=== PATIENT | male | born 1945 | race Caucasian/White ===

== ENCOUNTER → 2017-04-05 | Emergency (ER) | payer MEDICARE, BC ==
[~2017-04-05] VITALS: Ht 182.9 cm; Wt 80.3 kg
[~2017-04-05] MED LIST: DIAZEPAM INJ 5 MG/ML 2 ML IV ONE; LORAZEPAM INJ 2 MG/ML VIAL INJ ONE; ONDANSETRON HCL INJ 2 MG/ML VIAL IV ONE; SODIUM CHLORIDE 0.9% 1000ML 1,000 ML ONE; TYLENOL # 31 EA PO; ZOFRAN ODT4 MG SL; areds
== END | disposition home or self-care (01) ==
LOC: FSED 19:31
DX: R10.84 Generalized abdominal pain (principal); R11.0 Nausea; K59.00 Constipation, unspecified; N20.1 Calculus of ureter; C91.10 Chronic lymphocytic leukemia of B-cell type not having achieved remission; H35.30 Unspecified macular degeneration
CPT/HCPCS: 99283; J2060; J2405; J3360; J7030

== ENCOUNTER 2020-11-19 10:08 | Inpatient (IN) | payer MEDICARE ==
[~2020-11-19] VITALS: Ht 182.9 cm; Wt 85.3 kg
[~2020-11-19 10:08] MED LIST changes: -DIAZEPAM INJ 5 MG/ML 2 ML IV ONE; -LORAZEPAM INJ 2 MG/ML VIAL INJ ONE; -ONDANSETRON HCL INJ 2 MG/ML VIAL IV ONE; -SODIUM CHLORIDE 0.9% 1000ML 1,000 ML ONE
[2020-11-19] MEDS ORDERED: SODIUM CHLORIDE 0.9% 1000ML 1,000 ML IV STA (10:34)
[2020-11-19] MEDS ORDERED: ONDANSETRON HCL INJ 2MG/ML 2ML 2 MG/ML VIAL IV ONE (10:45)
[2020-11-19] MEDS ORDERED: KETOROLAC TROMETHAMINE 30 MG/ML VIAL IV ONE (10:45)
[2020-11-19] MEDS ORDERED: PIPERACILLIN/TAZOBACTAM 4.5 GM in SODIUM CHLORIDE 0.9% 100 ML IV ONE (10:45)
[2020-11-19] MEDS ORDERED: BENADRYL25 M1 PO (10:57)
[2020-11-19] MEDS ORDERED: VITAMIN D3250 MC1 PO (10:57)
[2020-11-19] MEDS ORDERED: MELATONIN1 M1 (10:57)
[2020-11-19] MEDS ORDERED: FLONASE ALLERG9.9 ML INH (10:57)
[2020-11-19] MEDS ORDERED: BACLOFEN10 MG PO (10:57)
[2020-11-19] MEDS ORDERED: MULTIVITAMINS1 EAC6 PO (10:57)
[2020-11-19] MEDS ORDERED: OMEPRAZOLE40 MG PO (10:57)
[2020-11-19] MEDS ORDERED: KETOROLAC TROMETHAMINE 30 MG/ML VIAL ONE (11:13)
[2020-11-19] MEDS ORDERED: SODIUM CHLORIDE 0.9% 50ML 50 ML ONE (11:13)
[2020-11-19] MEDS ORDERED: ONDANSETRON HCL INJ 2MG/ML 2ML 2 MG/ML VIAL ONE (11:13)
[2020-11-19] MEDS ORDERED: SODIUM CHLORIDE 0.9% 1000ML 1,000 ML ONE (11:13)
[2020-11-19] MEDS ORDERED: CEFTRIAXONE 1 GM VIAL ONE (11:13)
[2020-11-19] MEDS ORDERED: CEFTRIAXONE 1 GM in SODIUM CHLORIDE 0.9% 50ML 50 ML IV SCH (11:30)
[2020-11-19] MEDS ORDERED: ACETAMINOPHEN 325 MG TAB PO PRN (14:15)
[2020-11-19] MEDS ORDERED: HYDROCODONE/APAP 7.5MG-325MG 1 EA TAB PO PRN (14:15)
[2020-11-19] MEDS ORDERED: ONDANSETRON HCL INJ 2MG/ML 2ML 2 MG/ML VIAL IV PRN (14:15)
[2020-11-19] MEDS ORDERED: DIPHENHYDRAMINE HCL INJ 50 MG/ML VIAL IV PRN (14:15)
[2020-11-19] MEDS ORDERED: MORPHINE SULFATE INJ 4 MG/ML INJ 1ML IV PRN (14:15)
[2020-11-19] MEDS ORDERED: Vancomycin IV 1 GM in SODIUM CHLORIDE 0.9% 250ML 250 ML IV SCH (15:00)
[2020-11-19 16:25] VITALS: BP 136/69
[2020-11-19] MEDS: FAMOTIDINE 20 MG TAB PO SCH (17:59)
[2020-11-19] MEDS: SODIUM CHLORIDE 0.9% 1000ML 1,000 ML IV SCH ×2 (17:59→22:14)
[2020-11-19] MEDS: Vancomycin IV 1 GM in SODIUM CHLORIDE 0.9% 250ML 250 ML IV SCH (18:15)
[2020-11-19 20:00] VITALS: BP 142/71
[2020-11-19] MEDS ORDERED: CEFTRIAXONE 1 GM VIAL IV SCH (21:00)
[2020-11-19] MEDS ORDERED: ZOLPIDEM TARTRATE 5 MG TAB PO PRN (21:00)
[2020-11-19] MEDS: TAMSULOSIN HCL 0.4 MG CAP PO SCH (22:14)
[2020-11-19] MEDS: MEROPENEM 1 GM in SODIUM CHLORIDE 0.9% 100 ML IV SCH (22:14)
[2020-11-20] VITALS (9 sets, daily range): BP systolic 108–143; BP diastolic 71–85
[2020-11-20] MEDS: MEROPENEM 1 GM in SODIUM CHLORIDE 0.9% 100 ML IV SCH ×3 (05:48→22:17)
[2020-11-20] MEDS: SODIUM CHLORIDE 0.9% 1000ML 1,000 ML IV SCH ×2 (06:48→17:00)
[2020-11-20] MEDS: Vancomycin IV 1 GM in SODIUM CHLORIDE 0.9% 250ML 250 ML IV SCH ×2 (06:48→18:59)
[2020-11-20 07:07] LABS: BASOPHILS # (AUTO) 0.1 (0.0-0.1); BASOPHILS % 0.2 % (0.0-1.0); EOSINOPHILS # (AUTO) 0.1 (0.0-0.4); EOSINOPHILS % 0.3 % (0.0-6.0); HEMATOCRIT 39.6 % (38.2-49.6); HEMOGLOBIN 12.4 g/dL (14.0-18.0); LYMPHOCYTES % 70.8 % (18.0-39.1); MEAN CORPUSCULAR HEMOGLOBIN 29.2 pg (28-32); MEAN CORPUSCULAR HGB CONC 31.3 g/dL (31-35); MEAN CORPUSCULAR VOLUME 93.2 fL (81-99); MONOCYTES # (AUTO) 0.5 (0.2-0.8); MONOCYTES % 1.4 % (4.4-11.3); NEUTROPHILS # (AUTO) 8.3 (2.1-6.9); NEUTROPHILS % 26.8 % (38.7-80.0); PLATELET COUNT 382 x10e3/uL (140-360); RED BLOOD COUNT 4.25 x10e6/uL (4.3-5.7); RED CELL DISTRIBUTION WIDTH 14.6 % (11.7-14.4)
[2020-11-20 07:36] LABS: ANION GAP 14.2 mmol/L (8-16); CALCIUM 8.2 mg/dL (8.4-10.2); CREATININE, SERUM 0.78 mg/dL (0.72-1.25); POTASSIUM 4.2 mmol/L (3.5-5.1)
[2020-11-20 07:41] LABS: LYMPHOCYTES % (MANUAL) 55 % (19-48); MONOCYTES % (MANUAL) 1 % (3.4-9.0); NEUTROPHILS % (MANUAL) 43 % (40-74); PLATELET ESTIMATE ADEQUATE; PLATELET MORPHOLOGY COMMENT NORMAL; RBC MORPHOLOGY COMMENT NORMAL
[2020-11-20] MEDS: FAMOTIDINE 20 MG TAB PO SCH ×2 (08:24→17:25)
[2020-11-20] MEDS ORDERED: ONDANSETRON HCL INJ 2MG/ML 2ML 2 MG/ML VIAL IV PRN (10:00)
[2020-11-20 11:04] LABS: BASOPHILS # (AUTO) 0.1 (0.0-0.1); BASOPHILS % 0.2 % (0.0-1.0); EOSINOPHILS # (AUTO) 0.1 (0.0-0.4); EOSINOPHILS % 0.4 % (0.0-6.0); HEMATOCRIT 40.7 % (38.2-49.6); HEMOGLOBIN 12.6 g/dL (14.0-18.0); LYMPHOCYTES # (AUTO) 23.4 (1.0-3.2); LYMPHOCYTES % 70.4 % (18.0-39.1); MEAN CORPUSCULAR VOLUME 93.6 fL (81-99); MONOCYTES # (AUTO) 0.5 (0.2-0.8); MONOCYTES % 1.4 % (4.4-11.3); NEUTROPHILS % 27.1 % (38.7-80.0); PLATELET COUNT 402 x10e3/uL (140-360); RED BLOOD COUNT 4.35 x10e6/uL (4.3-5.7); RED CELL DISTRIBUTION WIDTH 14.5 % (11.7-14.4)
[2020-11-20 11:22] LABS: ANION GAP 13.9 mmol/L (8-16); CALCIUM 8.3 mg/dL (8.4-10.2); CREATININE, SERUM 0.74 mg/dL (0.72-1.25); POTASSIUM 3.9 mmol/L (3.5-5.1)
[2020-11-20] MEDS ORDERED: LIDOCAINE 4% PATCH TP PRN (12:45)
[2020-11-20] MEDS ORDERED: DIPHENHYDRAMINE HCL 25 MG CAP PO PRN (12:45)
[2020-11-20] MEDS ORDERED: DEXTROSE 50% SYRINGE 50 ML IV PRN (12:45)
[2020-11-20] MEDS ORDERED: ALBUTEROL/IPRATROPIUM 3 ML NEB NEB PRN (12:45)
[2020-11-20] MEDS ORDERED: BENZONATATE 100 MG CAP PO PRN (12:45)
[2020-11-20] MEDS ORDERED: DOCUSATE SODIUM 100 MG CAP PO PRN (12:45)
[2020-11-20] MEDS ORDERED: SIMETHICONE 80 MG CHEW PO PRN (12:45)
[2020-11-20] MEDS ORDERED: ACETAMINOPHEN 325 MG TAB PO PRN (12:45)
[2020-11-20] MEDS ORDERED: POTASSIUM CHLORIDE 20 MEQ TAB CR PO PRN (12:45)
[2020-11-20] MEDS ORDERED: HYDRALAZINE HCL 20 MG/ML VIAL IV PRN (12:45)
[2020-11-20] MEDS ORDERED: ACETAMINOPHEN/CODEINE 300MG - 30MG TAB PO PRN (13:15)
[2020-11-20] MEDS: AREDS PO SCH (17:00)
[2020-11-20] MEDS: ENOXAPARIN SOD INJ 40 MG/0.4 ML SYR SC SCH (17:25)
[2020-11-20] MEDS ORDERED: MELATONIN 5 MG TABLET PO PRN (21:00)
[2020-11-20] MEDS: TAMSULOSIN HCL 0.4 MG CAP PO SCH (22:17)
[2020-11-21] VITALS (8 sets, daily range): BP systolic 126–158; BP diastolic 70–85
[2020-11-21 05:26] LABS: BASOPHILS # (AUTO) 0.1 (0.0-0.1); BASOPHILS % 0.2 % (0.0-1.0); EOSINOPHILS # (AUTO) 0.2 (0.0-0.4); EOSINOPHILS % 0.5 % (0.0-6.0); HEMATOCRIT 41.9 % (38.2-49.6); HEMOGLOBIN 13.1 g/dL (14.0-18.0); LYMPHOCYTES # (AUTO) 25.1 (1.0-3.2); LYMPHOCYTES % 72.4 % (18.0-39.1); MEAN CORPUSCULAR HEMOGLOBIN 29.1 pg (28-32); MEAN CORPUSCULAR HGB CONC 31.3 g/dL (31-35); MEAN CORPUSCULAR VOLUME 93.1 fL (81-99); MONOCYTES # (AUTO) 0.5 (0.2-0.8); MONOCYTES % 1.3 % (4.4-11.3); NEUTROPHILS # (AUTO) 8.7 (2.1-6.9); NEUTROPHILS % 25.1 % (38.7-80.0); PLATELET COUNT 426 x10e3/uL (140-360); RED CELL DISTRIBUTION WIDTH 14.4 % (11.7-14.4)
[2020-11-21 06:01] LABS: CALCIUM 8.4 mg/dL (8.4-10.2); CREATININE, SERUM 0.74 mg/dL (0.72-1.25)
[2020-11-21] MEDS: MEROPENEM 1 GM in SODIUM CHLORIDE 0.9% 100 ML IV SCH ×3 (06:09→22:49)
[2020-11-21] MEDS: SODIUM CHLORIDE 0.9% 1000ML 1,000 ML IV SCH ×3 (06:34→22:49)
[2020-11-21] MEDS: Vancomycin IV 1 GM in SODIUM CHLORIDE 0.9% 250ML 250 ML IV SCH (07:13)
[2020-11-21 07:58] LABS: LYMPHOCYTES % (MANUAL) 48 % (19-48); MONOCYTES % (MANUAL) 2 % (3.4-9.0); NEUTROPHILS % (MANUAL) 50 % (40-74)
[2020-11-21 08:00] LABS: PLATELET ESTIMATE ADEQUATE; PLATELET MORPHOLOGY COMMENT NORMAL; SMUDGE CELLS MODERATE
[2020-11-21 08:02] LABS: RBC MORPHOLOGY COMMENT NORMAL
[2020-11-21] MEDS: FAMOTIDINE 20 MG TAB PO SCH ×2 (08:42→15:57)
[2020-11-21] MEDS: PANTOPRAZOLE SOD 40 MG TABEC PO SCH (08:42)
[2020-11-21] MEDS: CHOLECALCIFEROL 1,000 UNIT TAB PO SCH (08:42)
[2020-11-21] MEDS: MULTIVITAMINS/MINERALS TAB PO SCH (08:42)
[2020-11-21] MEDS: FLUTICASONE PROPIONATE NASAL SPRAY NS SCH (08:43)
[2020-11-21] MEDS: AREDS PO SCH ×2 (08:44→15:57)
[2020-11-21 10:52] LABS: HEMATOCRIT 41.8 % (38.2-49.6); HEMOGLOBIN 13.4 g/dL (14.0-18.0); MEAN CORPUSCULAR HEMOGLOBIN 29.5 pg (28-32); MEAN CORPUSCULAR HGB CONC 32.1 g/dL (31-35); MEAN CORPUSCULAR VOLUME 91.9 fL (81-99); PLATELET COUNT 375 x10e3/uL (140-360); RED BLOOD COUNT 4.55 x10e6/uL (4.3-5.7); RED CELL DISTRIBUTION WIDTH 14.3 % (11.7-14.4)
[2020-11-21] MEDS: ENOXAPARIN SOD INJ 40 MG/0.4 ML SYR SC SCH (15:59)
[2020-11-21] MEDS ORDERED: DIPHENHYDRAMINE HCL 25 MG CAP PO PRN (16:45)
[2020-11-21] MEDS ORDERED: Vancomycin IV 1.5 GM in SODIUM CHLORIDE 0.9% 250ML 300 ML IV SCH (18:00)
[2020-11-21 20:39] LABS: LYMPHOCYTES % (MANUAL) 55 % (19-48); MONOCYTES % (MANUAL) 2 % (3.4-9.0); NEUTROPHILS % (MANUAL) 43 % (40-74)
[2020-11-21 20:41] LABS: PLATELET ESTIMATE ADEQUATE; PLATELET MORPHOLOGY COMMENT NORMAL; RBC MORPHOLOGY COMMENT NORMAL
[2020-11-21 20:42] LABS: SMUDGE CELLS MODERATE
[2020-11-21] MEDS: TAMSULOSIN HCL 0.4 MG CAP PO SCH (22:49)
[2020-11-22] VITALS (8 sets, daily range): BP systolic 125–145; BP diastolic 63–76
[2020-11-22] MEDS: SODIUM CHLORIDE 0.9% 1000ML 1,000 ML IV SCH ×2 (04:46→14:27)
[2020-11-22] MEDS: MEROPENEM 1 GM in SODIUM CHLORIDE 0.9% 100 ML IV SCH (04:46)
[2020-11-22 05:20] LABS: BASOPHILS # (AUTO) 0.1 (0.0-0.1); BASOPHILS % 0.4 % (0.0-1.0); EOSINOPHILS # (AUTO) 0.1 (0.0-0.4); EOSINOPHILS % 0.4 % (0.0-6.0); HEMATOCRIT 36.4 % (38.2-49.6); HEMOGLOBIN 11.8 g/dL (14.0-18.0); LYMPHOCYTES # (AUTO) 17.4 (1.0-3.2); LYMPHOCYTES % 72.4 % (18.0-39.1); MEAN CORPUSCULAR HEMOGLOBIN 29.4 pg (28-32); MEAN CORPUSCULAR HGB CONC 32.4 g/dL (31-35); MEAN CORPUSCULAR VOLUME 90.8 fL (81-99); MONOCYTES # (AUTO) 0.5 (0.2-0.8); MONOCYTES % 1.9 % (4.4-11.3); NEUTROPHILS # (AUTO) 5.9 (2.1-6.9); NEUTROPHILS % 24.5 % (38.7-80.0); PLATELET COUNT 350 x10e3/uL (140-360); RED BLOOD COUNT 4.01 x10e6/uL (4.3-5.7); RED CELL DISTRIBUTION WIDTH 14.4 % (11.7-14.4)
[2020-11-22 06:08] LABS: ANION GAP 13.7 mmol/L (8-16); CALCIUM 8.2 mg/dL (8.4-10.2); CREATININE, SERUM 0.72 mg/dL (0.72-1.25); POTASSIUM 3.7 mmol/L (3.5-5.1)
[2020-11-22] MEDS: CHOLECALCIFEROL 1,000 UNIT TAB PO SCH (08:35)
[2020-11-22] MEDS: FAMOTIDINE 20 MG TAB PO SCH ×2 (08:35→16:06)
[2020-11-22] MEDS: AREDS PO SCH ×2 (08:35→16:06)
[2020-11-22] MEDS: MULTIVITAMINS/MINERALS TAB PO SCH (08:35)
[2020-11-22] MEDS: PANTOPRAZOLE SOD 40 MG TABEC PO SCH (08:35)
[2020-11-22] MEDS: FLUTICASONE PROPIONATE NASAL SPRAY NS SCH (08:35)
[2020-11-22] MEDS ORDERED: CEFTRIAXONE 2 GM in SODIUM CHLORIDE 0.9% 100 ML IV SCH (09:00)
[2020-11-22] MEDS ORDERED: PREDNISONE 20 MG TAB PO ONE (14:45)
[2020-11-22] MEDS: CLINDAMYCIN PHOS 900MG/ 50ML 50 ML IV SCH (16:08)
[2020-11-22] MEDS: ENOXAPARIN SOD INJ 40 MG/0.4 ML SYR SC SCH (16:09)
[2020-11-22] MEDS ORDERED: ONDANSETRON HCL 4 MG ORAL DISINTEGRATING TAB PO PRN (19:00)
[2020-11-23] VITALS: BP 154/87
[2020-11-23 04:00] VITALS: BP 145/79
[2020-11-23 04:25] VITALS: BP 154/87
[2020-11-23] MEDS: CLINDAMYCIN PHOS 900MG/ 50ML 50 ML IV SCH ×2 (06:03→08:54)
[2020-11-23] MEDS: TAMSULOSIN HCL 0.4 MG CAP PO SCH (06:03)
[2020-11-23 06:18] LABS: BASOPHILS # (AUTO) 0.1 (0.0-0.1); BASOPHILS % 0.2 % (0.0-1.0); HEMATOCRIT 42.4 % (38.2-49.6); HEMOGLOBIN 13.2 g/dL (14.0-18.0); LYMPHOCYTES # (AUTO) 20.6 (1.0-3.2); LYMPHOCYTES % 78.3 % (18.0-39.1); MEAN CORPUSCULAR HEMOGLOBIN 28.8 pg (28-32); MEAN CORPUSCULAR HGB CONC 31.1 g/dL (31-35); MEAN CORPUSCULAR VOLUME 92.4 fL (81-99); MONOCYTES # (AUTO) 0.4 (0.2-0.8); MONOCYTES % 1.5 % (4.4-11.3); NEUTROPHILS # (AUTO) 5.2 (2.1-6.9); NEUTROPHILS % 19.6 % (38.7-80.0); PLATELET COUNT 443 x10e3/uL (140-360); RED BLOOD COUNT 4.59 x10e6/uL (4.3-5.7); RED CELL DISTRIBUTION WIDTH 14.2 % (11.7-14.4)
[2020-11-23 06:44] LABS: ANION GAP 13.6 mmol/L (8-16); CALCIUM 8.7 mg/dL (8.4-10.2); CREATININE, SERUM 0.76 mg/dL (0.72-1.25); POTASSIUM 3.6 mmol/L (3.5-5.1)
[2020-11-23 07:44] VITALS: BP 163/82
[2020-11-23 07:58] VITALS: BP 163/82
[2020-11-23 08:19] LABS: LYMPHOCYTES % (MANUAL) 87 % (19-48); NEUTROPHILS % (MANUAL) 13 % (40-74)
[2020-11-23 08:20] LABS: PLATELET ESTIMATE ADEQUATE; PLATELET MORPHOLOGY COMMENT FEW GIANT; RBC MORPHOLOGY COMMENT NORMAL
[2020-11-23] MEDS: FLUTICASONE PROPIONATE NASAL SPRAY NS SCH (08:54)
[2020-11-23] MEDS: FAMOTIDINE 20 MG TAB PO SCH (08:54)
[2020-11-23] MEDS: PANTOPRAZOLE SOD 40 MG TABEC PO SCH (08:54)
[2020-11-23] MEDS: CHOLECALCIFEROL 1,000 UNIT TAB PO SCH (08:55)
[2020-11-23] MEDS: MULTIVITAMINS/MINERALS TAB PO SCH (08:55)
[2020-11-23] MEDS: AREDS PO SCH (08:55)
[2020-11-23 11:47] VITALS: BP 126/67
[2020-11-23] MEDS ORDERED: CIPRO500 MG PO (14:38)
[2020-11-23] MEDS ORDERED: FLOMAX0.4 MG PO (14:39)
== END 2020-11-23 15:40 | disposition home or self-care (01) | DRG 728 ==
LOC: FSED 10:11 → ERHOLD 14:02 → MED/SURG3 15:40
PROVIDERS: ADMIT Internal Medicine; ATTEND Internal Medicine
DX: N45.1 Epididymitis (principal); C91.10 Chronic lymphocytic leukemia of B-cell type not having achieved remission; N39.0 Urinary tract infection, site not specified; N40.0 Benign prostatic hyperplasia without lower urinary tract symptoms; Z85.528 Personal history of other malignant neoplasm of kidney; N43.3 Hydrocele, unspecified; D17.6 Benign lipomatous neoplasm of spermatic cord; K44.9 Diaphragmatic hernia without obstruction or gangrene; N47.1 Phimosis; Z20.822 Contact with and (suspected) exposure to COVID-19; B96.20 Unspecified Escherichia coli [E. coli] as the cause of diseases classified elsewhere
CPT/HCPCS: 36415; 74176; 76870; 80048; 80053; 80202; 81003; 82784; 83605; 85007; 85025; 85027; 87086; 87186; 96360; 96374; 96375; 99284; J0696; J1650; J1885; J2185; J2405; J3370; J7030; J7050; J7512; U0002